=== PATIENT | male | born 1955 | race Caucasian/White ===

== ENCOUNTER 2017-01-12 08:49 | Emergency (ER) | payer MEDICAID, OTHER ==
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
[2017-01-12 10:02] VITALS: BP 121/86
--- NOTE | 2017-01-12 10:33 | CR ---
EXAMINATION: Right knee HISTORY: Pain COMPARISON: None TECHNIQUE: 3 views FINDINGS/IMPRESSION: There is no acute osseous abnormality, dislocation, or fracture identified. The re is likely mild joint space narrowing within the lateral compartment. There is a trace suprapatell ar joint fluid and mild prepatellar soft tissue thickening.
== END 2017-01-12 10:30 | disposition home or self-care (01) ==
LOC: MW.ED 08:49
DX: M25.561 Pain in right knee (principal); F17.210 Nicotine dependence, cigarettes, uncomplicated
CPT/HCPCS: 73562-26-RT; 73562-RT; 99283

== ENCOUNTER → 2017-01-16 | Outpatient (CLI) | payer MEDICAID, OTHER ==
--- NOTE | 2017-01-18 14:02 | CR ---
EXAM DATE: 01/16/17 PATIENT'S AGE: 61 Patient: GLORIA WALDROP Facility: [place], [place] Site . Site Accession #: : [id number] Study: XRay Knee Right [id number] 2:49:49 PM Ordering Physician: Arian Addison Final Report: HISTORY: Pain. Findings: [place] view of the right knee is compared with AP and lateral radiographs of 12 January 2017. The patellofemoral joint space appears preserved. Patella is unremarkable. Dictated by Nata Suárez MD @ Jan 17 2017 10:04PM (Electronic Signature) Report Signed by Proxy. BHAVANA
== END ==
LOC: MW.CHORTHO 07:42
PROVIDERS: ATTEND Physician Assistant
DX: M25.561 Pain in right knee (principal)
CPT/HCPCS: 73560-26-RT; 73560-RT

== ENCOUNTER → 2017-02-06 | Outpatient (CLI) | payer MEDICAID ==
[2017-02-06 11:38] LABS: CHLORIDE,CL 108 mmol/L (98-110); SODIUM,NA 143 mmol/L (136-146)
== END ==
LOC: MW.CHIM 10:39
PROVIDERS: ATTEND Internal Medicine
DX: M25.561 Pain in right knee (principal); M17.11 Unilateral primary osteoarthritis, right knee
CPT/HCPCS: 36415; 80053

== ENCOUNTER → 2017-02-09 | Outpatient (CLI) | payer MEDICAID ==
--- NOTE | 2017-02-09 14:43 | MR ---
EXAMINATION: MRI of the right knee HISTORY: Pain COMPARISON: Radiographs dated 01/12/2017 TECHNIQUE: Multiplanar and multisequence images obtained of the right knee without contrast. FINDINGS: The patellar and quadriceps tendons appear intact. The ACL and the PCL are intact. There i s moderate articular cartilage thinning within the lateral compartment with degenerative appearing d egradation and tearing of the medial meniscus. There is possibly a small oblique undersurface tear o f the posterior horn of the medial meniscus involving the red zone. There is extensive edema within the medial femoral condyle with likely mild subchondral microfractures. Increased signal is noted al samantha the medial retinaculum with synovial thickening. The medial and lateral collateral ligament comp lexes appear intact. There is a small joint effusion and small to moderate Mark's cyst. Mild prepat ellar edema. IMPRESSION: 1. Extensive edema within the medial femoral condyle with likely mild subchondral microfractures. 2. Articular cartilage thinning within the lateral compartment with complex degenerative tearing of the lateral meniscus. 3. Probable small oblique undersurface tear of the posterior horn of the medial meniscus. 4. Moderate sprain/injury of the medial retinaculum with likely underlying synovitis. Line 5. Small joint effusion and Mark's cyst.
== END ==
LOC: MW.MRI 09:46
PROVIDERS: ATTEND Internal Medicine
DX: M25.561 Pain in right knee (principal); M17.11 Unilateral primary osteoarthritis, right knee; M25.461 Effusion, right knee; S83.8X1A Sprain of other specified parts of right knee, initial encounter; M71.21 Synovial cyst of popliteal space [Baker], right knee
CPT/HCPCS: 73723-26-RT; 73723-RT

== ENCOUNTER 2017-03-19 18:58 | Emergency (ER) | payer MEDICAID ==
[2017-03-19] MEDS ORDERED: Proparacaine 0.5% Ophth Soln 15 ML Bottle EYERT ONE (19:27)
--- NOTE | 2017-03-19 19:52 | EDM.PDOC ---
ED HPI GENERAL MEDICAL PROBLEM - General Chief Complaint: Eye Problems Stated Complaint: PT HAS PARTICLE IN RT EYE Time Seen by Provider: 03/19/17 19:35 Source of Information: Reports: Patient History Limitations: Reports: No Limitations - History of Present Illness INITIAL COMMENTS - FREE TEXT/NARRATIVE: HISTORY AND PHYSICAL: History of present illness: [Patient comes to the emergency room complaining of a sensation of a foreign body in his right eye. He was using a table saw at home when he felt a piece of soft dust or wood go into his right eye. States that he was wearing safety goggles. He was unable to flush it out at home and presents to the ER for removal. Complains of discomfort to his right eye. Does not wear contacts or glasses. He has no other complaints or concerns at this time.] Review of systems: As per history of present illness and below otherwise all systems reviewed and negative. Past medical history: As per history of present illness and as reviewed below otherwise noncontributory. Surgical history: As per history of present illness and as reviewed below otherwise noncontributory. Social history: No reported history of drug or alcohol abuse. Family history: As per history of present illness and as reviewed below otherwise noncontributory. Physical exam: See vision screen in nurse's notes. HEENT: Atraumatic, normocephalic. Right eye is brightly injected and erythematous. No foreign bodies appreciated on exam. No abnormalities on optic exam, PERRLA. Proparacaine is applied. No foreign bodies visualized. No increased uptake with fluorescein stain and observation under Kim lamp. Eye is cleansed with copious amounts of normal saline. Patient tolerated procedure well. Eye exam is improved following procedure. Impression: [Foreign body sensation right eye] Plan: [Patient is dispensed Tobrex eye solution 2 drops 4 times a day for the next 7 days. He is urged to follow-up with ophthalmology in the next 2-3 days. He is given referral information. Tylenol or ibuprofen as needed for discomfort. He is in agreement with today's plan.] Definitive disposition and diagnosis as appropriate pending reevaluation and review of above. Right Eye Pain Score (Numeric/FACES): 10 - Related Data Allergies Allergy/AdvReac Type Severity Reaction Status Date / Time No Known Allergies Allergy Verified 03/19/17 19:04 Home Meds: Home Meds . [No Known Home Meds] 01/12/17 [History] Past Medical History - Past Health History Medical/Surgical History: Denies Medical/Surgical History HEENT History: Reports: None Cardiovascular History: Reports: None Respiratory History: Reports: None Gastrointestinal History: Reports: Other (See Below) Other Gastrointestinal History: with abdominal hernia Genitourinary History: Reports: None Neurological History: Reports: None Psychiatric History: Reports: None Endocrine/Metabolic History: Reports: None Hematologic History: Reports: None Immunologic History: Reports: None Oncologic (Cancer) History: Reports: None Dermatologic History: Reports: None - Infectious Disease History Infectious Disease History: Reports: Chicken Pox, Measles, Mumps - Past Surgical History Head Surgeries/Procedures: Reports: None HEENT Surgical History: Reports: Adenoidectomy, Tonsillectomy Oncologic Surgical History: Reports: None Social & Family History - Family History Family Medical History: Noncontributory - Tobacco Use Smoking Status *Q: Current Every Day Smoker Years of Tobacco use: 30 Packs/Tins Daily: 0.5 Used Tobacco, but Quit: No - Caffeine Use Caffeine Use: Reports: Coffee Caffeine Use Comment: 1-2cups/day - Alcohol Use Days Per Week of Alcohol Use: 7 Number of Drinks Per Day: 3 Total Drinks Per Week: 21 - Recreational Drug Use Recreational Drug Use: No ED ROS GENERAL - Review of Systems Review Of Systems: ROS reveals no pertinent complaints other than HPI. ED EXAM GENERAL W FULL EYE - Physical Exam Exam: See Below Course - Vital Signs Last Recorded V/S: Last Vital Signs Temp 98.3 F 03/19/17 19:02 Pulse 100 03/19/17 19:02 Resp 20 03/19/17 19:02 BP 135/83 03/19/17 19:02 Pulse Ox 93 L 03/19/17 19:02 - Orders/Labs/Meds Orders: Active Orders 24 hr Category Date Time Status Tobramycin 0.3% [Tobramycin 0.3% Ophth Soln] Med 03/19/17 20:00 Active 1 ml EYERT STAT Medication Orders Tobramycin (Tobramycin 0.3% Ophth Soln) 1 ml EYERT STAT BEN Meds: Medications Generic Name Dose Route Start Last Admin Trade Name Freq PRN Reason Stop Dose Admin Tobramycin 1 ml 03/19/17 20:00 Tobramycin 0.3% Ophth Soln EYERT STAT BEN Discontinued Medications Generic Name Dose Route Start Last Admin Trade Name Jenaro PRN Reason Stop Dose Admin Proparacaine HCl 1 ml 03/19/17 19:27 03/19/17 19:40 Proparacaine 0.5% Ophth Soln EYERT 03/19/17 19:28 1 ml ONETIME ONE Administration Departure - Departure Time of Disposition: 19:50 Disposition: Home, Self-Care 01 Condition: Good Clinical Impression: Foreign body in eye Qualifiers: Encounter type: initial encounter Laterality: right Qualified Code(s): T15.91XA - Foreign body on external eye, part unspecified, right eye, initial encounter - Discharge Information Referrals: PCP,None [Primary Care Provider] - Forms: ED Department Discharge Additional Instructions: The following information is given to patients seen in the emergency department who are being discharged to home. This information is to outline your options for follow-up care. We provide all patients seen in our emergency department with a follow-up referral. The need for follow-up, as well as the timing and circumstances, are variable depending upon the specifics of your emergency department visit. If you don't have a primary care physician on staff, we will provide you with a referral. We always advise you to contact your personal physician following an emergency department visit to inform them of the circumstance of the visit and for follow-up with them and/or the need for any referrals to a consulting specialist. The emergency department will also refer you to a specialist when appropriate. This referral assures that you have the opportunity for follow-up care with a specialist. All of these measure are taken in an effort to provide you with optimal care, which includes your follow-up. Under all circumstances we always encourage you to contact your private physician who remains a resource for coordinating your care. When calling for follow-up care, please make the office aware that this follow-up is from your recent emergency room visit. If for any reason you are refused follow-up, please contact the [facility] emergency department at and asked to speak to the emergency department charge nurse. [address] [address] Follow-up the above-listed clinic in the next 48-72 hours. Use antibiotic eyedrops as discussed. Return to ER as needed as discussed. - My Orders Last 24 Hours: My Active Orders 03/19/17 20:00 Tobramycin 0.3% [Tobramycin 0.3% Ophth Soln] 1 ml EYERT STAT - Assessment/Plan Last 24 Hours: My Active Orders 03/19/17 20:00 Tobramycin 0.3% [Tobramycin 0.3% Ophth Soln] 1 ml EYERT STAT
[2017-03-19] MEDS ORDERED: Tobramycin 0.3% Ophth Drops 5 ML Bottle EYERT SCH (20:00)
[2017-03-19] MEDS ORDERED: Dexamethasone/Tobramycin 0.1-0.3% Ophth Susp 2.5 ML Bottle ONE (20:04)
[2017-03-19] MEDS ORDERED: Tobramycin 0.3% Ophth Drops 5 ML Bottle EYERT ONE (20:05)
[2017-03-19 20:18] VITALS: BP 136/84
== END 2017-03-19 20:15 | disposition home or self-care (01) ==
LOC: MW.ED 18:58
DX: T15.91XA Foreign body on external eye, part unspecified, right eye, initial encounter (principal); F17.210 Nicotine dependence, cigarettes, uncomplicated; Z98.890 Other specified postprocedural states
CPT/HCPCS: 99283; A9270

== ENCOUNTER 2018-12-06 08:22 | Day surgery (SDC) | payer MEDICAID ==
[~2018-12-06 08:22] MED LIST: Lactated Ringers 1,000 ML IV SCH; Lidocaine 2% 5 ML SDV ONE; Propofol 200 MG/20 ML SDV ONE; fentaNYL 100 MCG/2 ML SDV ONE
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
--- NOTE | 2018-12-06 10:21 | PCM.OPNOTE ---
- General Post-Op/Procedure Note Date of Surgery/Procedure: 12/06/18 Operative Procedure(s): Colonoscopy Pre Op Diagnosis: Desire for colorectal cancer screening Post-Op Diagnosis: No evidence of neoplasia Anesthesia Technique: MAC (ASA III) Primary Surgeon: Mir Morejon Condition: Good Free Text/Narrative:: DICTATION [id number] CPT CODE [id number]
[2018-12-06] MEDS ORDERED: Lactated Ringers 1,000 ML IV SCH (10:30)
--- NOTE | 2018-12-06 10:32 | PCM.POSTAN ---
POST ANESTHESIA ASSESSMENT - MENTAL STATUS Mental Status: Alert, Oriented - RESPIRATORY Respiratory Status: Respiratory Rate WNL, Airway Patent, O2 Saturation Stable - CARDIOVASCULAR CV Status: Pulse Rate WNL, Blood Pressure Stable - GASTROINTESTINAL GI Status: No Symptoms - POST OP HYDRATION Hydration Status: Adequate & Stable
--- NOTE | 2018-12-06 10:53 | PCM48HPAN ---
Post Anesthesia Note - EVALUATION WITHIN 48HRS OF ANESTHETIC Vital Signs in Normal Range: Yes Patient Participated in Evaluation: Yes Respiratory Function Stable: Yes Airway Patent: Yes Cardiovascular Function Stable: Yes Hydration Status Stable: Yes Pain Control Satisfactory: Yes Nausea and Vomiting Control Satisfactory: Yes Mental Status Recovered: Yes Resp Rate: 16 - COMMENTS/OBSERVATIONS Free Text/Narrative:: States ready to go home
[2018-12-06 12:20] VITALS: BP 111/72
--- NOTE | 2018-12-06 13:09 | OR ---
SURGEON: Mir Morejon M.D. DATE OF PROCEDURE: 12/06/2018 OPERATION PERFORMED: Colonoscopy. ANESTHESIA: MAC. ASA CLASSIFICATION: III. PREOPERATIVE DIAGNOSIS: Desire for colorectal cancer screening. POSTOPERATIVE DIAGNOSIS: Pancolonic diverticulosis. DESCRIPTION OF PROCEDURE: The patient was taken to the endoscopy room and positioned on the endoscopy table in the left lateral decubitus position. Time-out was called for appropriate identification of the patient and procedure. Monitored anesthesia care was provided. The colonoscope was inserted into the rectum and advanced with minimal difficulty to the cecum where the colonoscope was retroflexed to visualize the ascending colon from below. The colonoscope was then straightened and slowly withdrawn. The patient does have pancolonic diverticulosis with changes of diverticular disease noted in the proximal ascending colon. The ascending colon, hepatic flexure, transverse colon, splenic flexure, descending colon, sigmoid colon, and rectum were very well visualized. There were no tumors or polyps. There was no evidence of inflammatory bowel disease. Again, noted was the pancolonic diverticulosis. Once the colonoscope was withdrawn to the rectum, it was retroflexed to visualize the anal orifice from above. Again, no tumors or polyps were seen and there were no acute hemorrhoidal changes. The colonoscope was then straightened, the rectum aspirated, and the colonoscope removed. The patient tolerated the procedure well and was taken to recovery room in stable condition. RAVI LICEA /[id number]
== END 2018-12-06 11:08 | disposition home or self-care (01) ==
LOC: MW.SDS 08:22
PROVIDERS: ATTEND Surgery
DX: Z12.11 Encounter for screening for malignant neoplasm of colon (principal); K57.30 Diverticulosis of large intestine without perforation or abscess without bleeding; K43.2 Incisional hernia without obstruction or gangrene; E78.00 Pure hypercholesterolemia, unspecified; F17.210 Nicotine dependence, cigarettes, uncomplicated; M17.11 Unilateral primary osteoarthritis, right knee; Z79.899 Other long term (current) drug therapy
CPT/HCPCS: 45378; J2001; J2704; J3010; J7120

== ENCOUNTER 2019-03-22 10:59 | Emergency (ER) | payer MEDICAID ==
[2019-03-22 11:11] VITALS: BP 130/75
[2019-03-22] MEDS ORDERED: Benzocaine 20% Topical Spray UD MUCMEM ONE (11:14)
[2019-03-22] MEDS ORDERED: Lidocaine 2% Viscous Solution 15 ML Cup PO ONE (11:14)
--- NOTE | 2019-03-22 11:23 | EDM.PDOC ---
<Brooke Bailon - Last Filed: 03/22/19 11:23> ED HPI GENERAL MEDICAL PROBLEM - General Chief Complaint: ENT Problem Stated Complaint: TOOTH PAIN Time Seen by Provider: 03/22/19 11:26 - History of Present Illness INITIAL COMMENTS - FREE TEXT/NARRATIVE: HISTORY AND PHYSICAL: History of present illness: Patient is a 63-year-old man who presents for dental pain. He states that he had chronic dental pain that has been increasing the past couple of days. He has loose teeth on his lower left side that he came here to get removed. He does not regularly see the dentist due to fear, but is missing most of his lower teeth. He denies any masses or drainage from the area. Patient denies fever, chills, chest pain, shortness of breath, or cough. Denies headache, neck stiff ness, change in vision, syncope, or near syncope. Denies nausea, vomiting, abdominal pain, diarrhea, constipation, or dysuria. Has not noted any blood in urine or stool. Patient has been eating and drinking appropriately. Review of systems: As per history of present illness and below otherwise all systems reviewed and negative. Past medical history: As per history of present illness and as reviewed below otherwise noncontributory. Surgical history: As per history of present illness and as reviewed below otherwise noncontributory. Social history: See social history for further information Family history: As per history of present illness and as reviewed below otherwise noncontributory. Physical exam: General: Patient is alert, oriented, and in no acute distress. Patient sitting comfortably on exam chair. HEENT: Atraumatic, normocephalic, pupils equal and reactive bilaterally, negative for conjunctival pallor or scleral icterus, mucous membranes moist, TMs normal bilaterally, throat clear, neck supple, nontender, trachea midline. No drooling or trismus noted. No meningeal signs. No hot potato voice noted. Tooth number 23 and 22 were obviously loose. He was able to move teeth with tongue. Overall poor dentition. Numerous teeth missing from lower jawline. Lungs: Clear to auscultation, breath sounds equal bilaterally, chest nontender. Heart: S1S2, regular rate and rhythm without overt murmur Abdomen: Soft, nondistended, nontender. Negative for masses or hepatosplenomegaly Skin: Intact, warm, dry. No lesions or rashes noted. Extremities: Atraumatic, negative for cords or calf pain. Neurovascular unremarkable. Neuro: Awake, alert, oriented. Cranial nerves II through XII unremarkable. Cerebellum unremarkable. Motor and sensory unremarkable throughout. Exam nonfocal. Notes: Discussed with patient the need to follow up with a dentist for extraction. Supportive care measures were reviewed and discussed. Voices understanding and is agreeable to plan of care. Denies any further questions or concerns at this time. Diagnostics: None. Therapeutics: Dental balls. Prescription: Pen VK, Tramadol (#15) Impression: Dental caries Plan: 1. Take the medications as prescribed. Tylenol and ibuprofen as directed for pain and discomfort. Dental balls as needed. 2. Follow up with dentist as discussed. Return to ED as needed and as discussed. Definitive disposition and diagnosis as appropriate pending reevaluation and review of above. left teeth Pain Score (Numeric/FACES): 10 - Related Data Allergies Allergy/AdvReac Type Severity Reaction Status Date / Time No Known Allergies Allergy Verified 03/22/19 11:07 Home Meds: Home Meds Penicillin V Potassium 500 mg PO TID 10 Days #30 tab 03/22/19 [Rx] traMADol [Ultram] 50 mg PO Q4H PRN #15 tab 03/22/19 [Rx] Past Medical History - Past Health History Medical/Surgical History: Denies Medical/Surgical History HEENT History: Reports: None Cardiovascular History: Reports: High Cholesterol Respiratory History: Reports: None Gastrointestinal History: Reports: None Other Gastrointestinal History: with abdominal hernia Genitourinary History: Reports: None Musculoskeletal History: Reports: Fracture Other Musculoskeletal History: states multiple fx- no hardware Neurological History: Reports: Concussion Psychiatric History: Reports: None Endocrine/Metabolic History: Reports: Obesity/BMI 30+ Hematologic History: Reports: Blood Transfusion(s) Immunologic History: Reports: None Oncologic (Cancer) History: Reports: None Dermatologic History: Reports: None - Infectious Disease History Infectious Disease History: Reports: Chicken Pox, Measles, Mumps - Past Surgical History Head Surgeries/Procedures: Reports: None HEENT Surgical History: Reports: Tonsillectomy, Other (See Below) Other HEENT Surgeries/Procedures: repair of a "hole" in his nose from trauma Cardiovascular Surgical History: Reports: None Respiratory Surgical History: Reports: None GI Surgical History: Reports: Other (See Below) Other GI Surgeries/Procedures: Splenectomy Male Surgical History: Reports: None Endocrine Surgical History: Reports: None Neurological Surgical History: Reports: None Musculoskeletal Surgical History: Reports: Arthroscopic Knee, Other (See Below) Other Musculoskeletal Surgeries/Procedures:: 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 ED EXAM, ENT - Physical Exam Exam: See Below (see dictation) Course - Vital Signs Last Recorded V/S: Last Vital Signs Temp 97.3 F 03/22/19 11:05 Pulse 83 03/22/19 11:05 Resp 18 03/22/19 11:05 BP 130/75 03/22/19 11:05 Pulse Ox 94 L 03/22/19 11:05 - Orders/Labs/Meds Meds: Medications Discontinued Medications Generic Name Dose Route Start Last Admin Trade Name Freq PRN Reason Stop Dose Admin Benzocaine 2 each 03/22/19 11:14 Hurricaine One 20% MUCMEM 03/22/19 11:15 ONETIME ONE Lidocaine HCl 15 ml 03/22/19 11:14 Xylocaine 2% Viscous PO 03/22/19 11:15 ONETIME ONE Departure - Departure Time of Disposition: 11:23 Disposition: Home, Self-Care 01 Clinical Impression: Dental caries - Discharge Information Prescriptions: Penicillin V Potassium 500 mg PO TID 10 Days #30 tab traMADol [Ultram] 50 mg PO Q4H PRN #15 tab PRN Reason: Pain Referrals: Heriberto Blackwell MD [Primary Care Provider] - Forms: ED Department Discharge Additional Instructions: The following information is given to patients seen in the emergency department who are being discharged to home. This information is to outline your options for follow-up care. We provide all patients seen in our emergency department with a follow-up referral. The need for follow-up, as well as the timing and circumstances, are variable depending upon the specifics of your emergency department visit. If you don't have a primary care physician on staff, we will provide you with a referral. We always advise you to contact your personal physician following an emergency department visit to inform them of the circumstance of the visit and for follow-up with them and/or the need for any referrals to a consulting specialist. The emergency department will also refer you to a specialist when appropriate. This referral assures that you have the opportunity for follow-up care with a specialist. All of these measure are taken in an effort to provide you with optimal care, which includes your follow-up. Under all circumstances we always encourage you to contact your private physician who remains a resource for coordinating your care. When calling for follow-up care, please make the office aware that this follow-up is from your recent emergency room visit. If for any reason you are refused follow-up, please contact the [facility] Emergency Department at and asked to speak to the emergency department charge nurse. [facility] [address] [place] [id number] [place] [address] 1. Take the medications as prescribed. Tylenol and ibuprofen as directed for pain and discomfort. Dental balls as needed. 2. Follow up with dentist as discussed. Return to ED as needed and as discussed. <Carmencita Mahoney E - Last Filed: 03/22/19 11:26> ED HPI GENERAL MEDICAL PROBLEM - General Source of Information: Reports: Patient History Limitations: Reports: No Limitations - History of Present Illness INITIAL COMMENTS - FREE TEXT/NARRATIVE: I did personally seen this patient and evaluated. I agree with the assessment above. Patient states he would like dental extraction here in the emergency room. We discussed the importance of follow-up with the dentist as he will likely need more care than just the dental extraction. As he does have poor dentition and multiple caries along with some mild erythema along the gumline I will give him antibiotics. Patient states he will pull his teeth himself. I did encourage him to follow-up for extraction. Medication education was reviewed and discussed with the patient. We'll give him dental balls while here for comfort. He voices understanding and is agreeable. He denies any further questions or concerns at this time. ED ROS ENT - Review of Systems Review Of Systems: ROS reveals no pertinent complaints other than HPI.
== END 2019-03-22 11:35 | disposition home or self-care (01) ==
LOC: MW.ED 10:59
DX: K02.9 Dental caries, unspecified (principal); E78.00 Pure hypercholesterolemia, unspecified; F17.210 Nicotine dependence, cigarettes, uncomplicated
CPT/HCPCS: 99282; A9270; 99283

== ENCOUNTER 2020-02-17 11:46 | Emergency (ER) | payer MEDICAID ==
--- NOTE | 2020-02-17 12:05 | EDM.PDOC ---
ED HPI GENERAL MEDICAL PROBLEM - General Chief Complaint: Upper Extremity Injury/Pain Stated Complaint: Shoulder pain Time Seen by Provider: 02/17/20 12:04 Source of Information: Reports: Patient History Limitations: Reports: No Limitations - History of Present Illness INITIAL COMMENTS - FREE TEXT/NARRATIVE: HISTORY AND PHYSICAL: History of present illness: Patient is a 64-year-old male presents the ED with complaint of right shoulder pain. Patient states that he has had the pain for a couple of months and came to the ED today because "it hurts." Patient denies any injury to the shoulder. He is just states that he has a lot of pain especially when moving it and he works as a day and "needs to get it fixed." He is not taking anything over -the-counter for the pain. He has not followed up with his primary care provider. Review of systems: As per history of present illness and below otherwise all systems reviewed and negative. Past medical history: As per history of present illness and as reviewed below otherwise noncontributory. Surgical history: As per history of present illness and as reviewed below otherwise noncontributory. Social history: No reported history of drug or alcohol abuse. Family history: As per history of present illness and as reviewed below otherwise noncontributory. Physical exam: General: Patient sitting comfortably in no acute distress and nontoxic appearing HEENT: Atraumatic, normocephalic, pupils reactive, negative for conjunctival pallor or scleral icterus, mucous membranes moist, throat clear, neck supple, nontender, trachea midline. No meningeal signs. Lungs: Clear to auscultation, breath sounds equal bilaterally, chest nontender. Heart: S1S2, regular, negative for clicks, rubs, or overt murmur. Abdomen: Soft, nondistended, nontender. Negative for masses or hepatosplenomegaly. Negative for costovertebral tenderness. No rigidity, rebound , guarding. Pelvis: Stable nontender. Genitourinary: Deferred. Rectal: Deferred. Extremities: Pain to palpation of the AC joint of the right shoulder. He has limited range of motion of the right shoulder secondary to pain but also had poor attempt when I asked him to do so. Atraumatic, negative for cords or calf pain. Neurovascular unremarkable. Neuro: Awake, alert, oriented. Cranial nerves II through XII unremarkable. Cerebellum unremarkable. Motor and sensory unremarkable throughout. Exam nonfocal. Notes: Diagnostics: Right shoulder x-ray Therapeutics: none Prescriptions: Diclofenac Impression: Right shoulder pain Plan: Take diclofenac twice daily with food as directed Follow up with primary care provider Return to ED as needed as discussed Definitive disposition and diagnosis as appropriate pending reevaluation and review of above. Right Shoulder Pain Score (Numeric/FACES): 9 - Related Data Allergies Allergy/AdvReac Type Severity Reaction Status Date / Time No Known Allergies Allergy Verified 03/22/19 11:07 Home Meds: Home Meds Diclofenac Sodium [Voltaren] 75 mg PO BIDMEALS #20 tab.cr 02/17/20 [Rx] Past Medical History - Past Health History Medical/Surgical History: Denies Medical/Surgical History HEENT History: Reports: None Cardiovascular History: Reports: High Cholesterol Respiratory History: Reports: None Gastrointestinal History: Reports: None Other Gastrointestinal History: with abdominal hernia Genitourinary History: Reports: None Musculoskeletal History: Reports: Fracture Other Musculoskeletal History: states multiple fx- no hardware Neurological History: Reports: Concussion Psychiatric History: Reports: None Endocrine/Metabolic History: Reports: Obesity/BMI 30+ Hematologic History: Reports: Blood Transfusion(s) Immunologic History: Reports: None Oncologic (Cancer) History: Reports: None Dermatologic History: Reports: None - Infectious Disease History Infectious Disease History: Reports: Chicken Pox, Measles, Mumps - Past Surgical History Head Surgeries/Procedures: Reports: None HEENT Surgical History: Reports: Tonsillectomy, Other (See Below) Other HEENT Surgeries/Procedures: repair of a "hole" in his nose from trauma Cardiovascular Surgical History: Reports: None Respiratory Surgical History: Reports: None GI Surgical History: Reports: Other (See Below) Other GI Surgeries/Procedures: Splenectomy Male Surgical History: Reports: None Endocrine Surgical History: Reports: None Neurological Surgical History: Reports: None Musculoskeletal Surgical History: Reports: Arthroscopic Knee, Other (See Below) Other Musculoskeletal Surgeries/Procedures:: 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 ED EXAM, GENERAL - Physical Exam Exam: See Below (see dictation) Course - Vital Signs Last Recorded V/S: Last Vital Signs Temp 96.6 F L 02/17/20 12:11 Pulse 88 02/17/20 12:11 Resp 20 02/17/20 12:11 BP 119/75 02/17/20 12:11 Pulse Ox 94 L 02/17/20 12:11 Departure - Departure Time of Disposition: 12:55 Disposition: Home, Self-Care 01 Condition: Good Clinical Impression: Right shoulder pain - Discharge Information Referrals: Heriberto Blackwell MD [Primary Care Provider] - Forms: ED Department Discharge Additional Instructions: The following information is given to patients seen in the emergency department who are being discharged to home. This information is to outline your options for follow-up care. We provide all patients seen in our emergency department with a follow-up referral. The need for follow-up, as well as the timing and circumstances, are variable depending upon the specifics of your emergency department visit. If you don't have a primary care physician on staff, we will provide you with a referral. We always advise you to contact your personal physician following an emergency department visit to inform them of the circumstance of the visit and for follow-up with them and/or the need for any referrals to a consulting specialist. The emergency department will also refer you to a specialist when appropriate. This referral assures that you have the opportunity for follow-up care with a specialist. All of these measure are taken in an effort to provide you with optimal care, which includes your follow-up. Under all circumstances we always encourage you to contact your private physician who remains a resource for coordinating your care. When calling for follow-up care, please make the office aware that this follow-up is from your recent emergency room visit. If for any reason you are refused follow-up, please contact the [facility] Emergency Department at and asked to speak to the emergency department charge nurse. [facility] [address] [place] [address] [id number] [address] [address] Take diclofenac twice daily with food as directed Follow up with primary care provider Return to ED as needed as discussed Sepsis Event Note - Focused Exam Vital Signs: Vital Signs Temp Pulse Resp BP Pulse Ox 02/17/20 12:11 96.6 F L 88 20 119/75 94 L Date Exam was Performed: 02/17/20 Time Exam was Performed: 12:54
[2020-02-17 12:15] VITALS: BP 119/75; PULSE 88
--- NOTE | 2020-02-17 12:53 | CR ---
Right shoulder: 3 views right shoulder obtained. Comparison: No previous shoulder study. Deformity is noted around the right shoulder involving the scapula compatible with old injury. Bony density is seen in the area of the coracoclavicular ligament which appears to represent dystrophic calcification from old injury. No acute fracture or dislocation is seen. Impression: 1. Findings of old injury as noted above. 2. Nothing acute is appreciated. Diagnostic code #2 This report was dictated in MDT
== END 2020-02-17 13:08 | disposition home or self-care (01) ==
LOC: MW.ED 11:46
DX: M25.511 Pain in right shoulder (principal); E66.9 Obesity, unspecified; Z68.31 Body mass index [BMI] 31.0-31.9, adult
CPT/HCPCS: 73030-26-RT; 73030-RT; 99283; 99283-25

== ENCOUNTER 2021-06-20 22:07 | Emergency (ER) | payer MEDICAID | END 2021-06-20 23:35 | disposition left against medical advice (07) | LOC: MW.ED 22:07 | DX: T15.92XA Foreign body on external eye, part unspecified, left eye, initial encounter (principal); Z53.21 Procedure and treatment not carried out due to patient leaving prior to being seen by health care provider ==

== ENCOUNTER 2021-11-06 16:02 | Emergency (ER) | payer MEDICARE, MEDICAID ==
[2021-11-06 16:38] VITALS: BP 122/86; PULSE 100
== END 2021-11-06 17:01 | disposition home or self-care (01) ==
LOC: MW.ED 16:02
DX: L03.113 Cellulitis of right upper limb (principal); E78.00 Pure hypercholesterolemia, unspecified; E66.9 Obesity, unspecified; Z68.30 Body mass index [BMI] 30.0-30.9, adult
CPT/HCPCS: 99283

== ENCOUNTER 2022-01-07 17:37 | Emergency (ER) | payer MEDICARE, MEDICAID ==
[2022-01-07 18:29] VITALS: BP 163/105; PULSE 86
[2022-01-07] MEDS ORDERED: traMADol 50 MG Tab PO ONE (19:20)
== END 2022-01-07 19:44 | disposition home or self-care (01) ==
LOC: MW.ED 17:37
DX: S90.31XA Contusion of right foot, initial encounter (principal); E66.9 Obesity, unspecified; Z68.32 Body mass index [BMI] 32.0-32.9, adult; W20.8XXA Other cause of strike by thrown, projected or falling object, initial encounter
CPT/HCPCS: 73630; 99283; A9270